=== PATIENT | male | born 1940 | race Two or more races ===

== ENCOUNTER 2019-10-28 18:06 | Emergency (ER) | payer OTHER ==
[~2019-10-28] VITALS: Ht 175.3 cm; Wt 77.1 kg
[2019-10-28] MEDS ORDERED: ZETIA10 MG (18:24)
[2019-10-28] MEDS ORDERED: VITAMIN C500 M2 (18:24)
[2019-10-28] MEDS ORDERED: CHILDREN'S ASPI81 MG (18:24)
[2019-10-28] MEDS ORDERED: GLIPIZIDE XL10 MG (18:24)
[2019-10-28] MEDS ORDERED: FORTAMET500 MG (18:25)
[2019-10-28] MEDS ORDERED: VITAMIN B-12100 MCG (18:25)
[2019-10-28] MEDS ORDERED: LIPITOR40 M1 (18:25)
[2019-10-28] MEDS ORDERED: JANUVIA100 MG (18:26)
[2019-10-28] MEDS ORDERED: ZESTRIL20 MG (18:26)
[2019-10-28] MEDS ORDERED: TOPROL XL50 M1 (18:26)
== END 2019-10-28 22:13 | disposition home or self-care (01) ==
LOC: ER 18:06
DX: R07.89 Other chest pain (principal)

== ENCOUNTER 2019-12-17 17:30 | Emergency (ER) | payer OTHER ==
[~2019-12-17] VITALS: Ht 175.3 cm; Wt 72.6 kg
[~2019-12-17 17:30] MED LIST: CHILDREN'S ASPI81 MG; FORTAMET500 MG; GLIPIZIDE XL10 MG; JANUVIA100 MG; LIPITOR40 M1; TOPROL XL50 M1; VITAMIN B-12100 MCG; VITAMIN C500 M2; ZESTRIL20 MG; ZETIA10 MG
== END 2019-12-17 19:24 | disposition home or self-care (01) ==
LOC: ER 17:30
DX: E87.5 Hyperkalemia (principal); R53.1 Weakness; F41.8 Other specified anxiety disorders; E13.9 Other specified diabetes mellitus without complications; Z79.84 Long term (current) use of oral hypoglycemic drugs

== ENCOUNTER 2023-03-18 18:10 | Emergency (ER) | payer OTHER ==
[~2023-03-18] VITALS: Ht 175.3 cm; Wt 70.8 kg
[~2023-03-18 18:10] MED LIST changes: +ACTOS15 MG PO; +TOPROL XL50 M1 PO
== END 2023-03-18 20:27 | disposition home or self-care (01) ==
LOC: ER 18:10
DX: R07.9 Chest pain, unspecified (principal); Z88.0 Allergy status to penicillin

== ENCOUNTER 2023-05-18 21:19 | Emergency (ER) | payer OTHER ==
[~2023-05-18] VITALS: Ht 175.3 cm; Wt 71.2 kg
[2023-05-18] MEDS ORDERED: CHILDREN'S ASPI81 MG PO (22:02)
[2023-05-18] MEDS ORDERED: SYNTHROID50 MCG PO (22:02)
[2023-05-18] MEDS ORDERED: EZETIMIBE10 MG PO (22:03)
== END 2023-05-19 03:34 | disposition left against medical advice (07) ==
LOC: ER 21:19
PROVIDERS: General Practice
DX: R42 Dizziness and giddiness (principal); E11.9 Type 2 diabetes mellitus without complications; Z79.4 Long term (current) use of insulin; I10 Essential (primary) hypertension; M51.36 Other intervertebral disc degeneration, lumbar region; Z88.0 Allergy status to penicillin
CPT/HCPCS: 36415; 72040; 93005; 96372; 99284; J2765

== ENCOUNTER 2024-03-30 09:48 | Emergency (ER) | payer OTHER ==
[~2024-03-30] VITALS: Ht 175.3 cm; Wt 70.3 kg
[~2024-03-30 09:48] MED LIST changes: +CHILDREN'S ASPI81 MG PO; +EZETIMIBE10 MG PO; +SYNTHROID50 MCG PO
[2024-03-30 10:52] LABS: HEMATOCRIT 41.9 % (39.0-48.0); MEAN CELL VOLUME 84.7 fL (80.0-100.00); MEAN CORPUSCULAR HEMOGLOBIN 28.2 pg (27.00-32.0); MEAN CORPUSCULAR HGB CONC 33.3 g/dl (32.0-36.0); RED BLOOD COUNT 4.95 M/uL (4.00-6.00); RED CELL DISTRIBUTION WIDTH 15.6 % (11.5-14.5)
[2024-03-30 11:25] LABS: PLATELET COUNT 129 K/uL (150-450)
== END 2024-03-30 13:22 | disposition home or self-care (01) ==
LOC: ER 09:48
PROVIDERS: Emergency Medicine
DX: J02.9 Acute pharyngitis, unspecified (principal); I10 Essential (primary) hypertension; E11.9 Type 2 diabetes mellitus without complications; Z88.0 Allergy status to penicillin; Z20.822 Contact with and (suspected) exposure to COVID-19

== ENCOUNTER 2025-01-03 20:22 | Emergency (ER) | payer OTHER ==
[~2025-01-03] VITALS: Ht 175.3 cm; Wt 68.0 kg
[2025-01-03] MEDS ORDERED: GLYXAMBI 25 MG1 EACH PO (20:41)
[2025-01-03] MEDS ORDERED: 0.9 % SODIUM CHLORIDE 1,000 ML IV SCH (21:45)
[2025-01-03] MEDS ORDERED: ACETAMINOPHEN 500 MG GEL..CAP PO ONE ×2 (21:45→22:18)
[2025-01-03] MEDS ORDERED: FAMOTIDINE/PF 20 MG in 0.9 % SODIUM CHLORIDE 8 ML IV PUSH ONE (21:45)
[2025-01-03] MEDS ORDERED: FAMOTIDINE/PF 20 MG/2 ML VIAL ONE (22:19)
[2025-01-03 23:24] LABS: HEMATOCRIT 43.9 % (39.0-48.0); HEMOGLOBIN 14.6 g/dL (13-16.00); MEAN CELL VOLUME 84.3 fL (80.0-100.00); MEAN CORPUSCULAR HGB CONC 33.2 g/dl (32.0-36.0); PLATELET COUNT 161 K/uL (150-450); RED BLOOD COUNT 5.21 M/uL (4.00-6.00)
[2025-01-03 23:51] LABS: ALBUMIN 3.7 gm/dL (3.4-5.0); BILIRUBIN TOTAL 0.5 mg/dL (0.3-1.2); CALCIUM 9.1 mg/dL (8.5-10.1); CREATININE SERUM 1.01 mg/dL (0.70-1.30); GFR 70.04; GLOBULINA 3.2 G/DL (2.4-3.5); POTASSIUM 4.39 mEq/L (3.5-5.1); TOTAL PROTEIN 6.9 gm/dL (6.4-8.2)
[2025-01-04 00:19] LABS: URINE BILIRRUBIN Negative (NEGATIVE); URINE BLOOD Trace; URINE COLOR Yellow; URINE KETONE Trace (NEGATIVE); URINE LEUKOCYTE Small; URINE NITRATE Negative; URINE PROTEIN Negative (NEGATIVE); URINE UROBILINOGEN 0.2 E.U./dl
[2025-01-04 00:22] LABS: URINE RBC 4.1 uL (0.0-20.8); URINE WBC 476.2 uL (0.0-23.2)
[2025-01-04 00:27] LABS: URINE GLUCOSE >=1000 MG/DL (NEGATIVE)
[2025-01-04 00:28] LABS: URINE APPEARANCE SL CLOUDY; URINE BACTERIA > 9821.5 uL (0.0-1933); URINE CAST 0.88 uL (0.0-1.40)
[2025-01-04 01:01] LABS: INR 0.99; PARTIAL THROMBOPLASTIN TIME 29.8 SECONDS (22.0-34.0); PROTHROMBIN TIME 10.8 SECONDS (9.0-11.5)
[2025-01-04] MEDS ORDERED: CIPRO500 MG PO (03:14)
== END 2025-01-04 03:24 ==
LOC: ER 20:23
PROVIDERS: General Practice
DX: N39.0 Urinary tract infection, site not specified (principal); K62.5 Hemorrhage of anus and rectum; I16.0 Hypertensive urgency; Z88.0 Allergy status to penicillin
CPT/HCPCS: 36415; 74177; 93005; 96365; 96366; 99284; J7030; Q9965

== ENCOUNTER → 2025-08-23 | Emergency (ER) | payer OTHER ==
[~2025-08-23] VITALS: Ht 175.3 cm; Wt 63.5 kg
[~2025-08-23] MED LIST changes: +CIPRO500 MG PO; +DEXAMETHASONE SODIUM PHOSPHATE 4 MG/ML VIAL IM STA; +GLYXAMBI 25 MG1 EACH PO; +MECLIZINE HCL 12.5 MG TABLET PO ONE
[2025-08-23 19:26] VITALS: BP 150/80; O2SAT 99
[2025-08-23 21:07] LABS: BASO % 0.6 % (0.1-1.2); EOS # 0.04 (0.04-0.54); EOS % 0.8 % (0.7-7.0); LYMPH # 0.83 (1.18-3.74); LYMPH % 16.5 % (19.3-53.1); MEAN PLATELET VOLUME 11.70 fl (9.4-12.4); MONO # 0.56 (0.24-0.82); MONO % 11.1 % (4.7-12.5); NEUT # 3.56 (1.56-6.13); NEUT % 70.8 % (34.0-71.1); RED CELL DISTRIBUTION WIDTH 16.2 % (11.6-14.4)
[2025-08-23 21:27] LABS: INR 1.0
[2025-08-23 21:28] LABS: BUN CREA RATIO 26.0 (7.0-25.0); CREATININE SERUM 1.15 mg/dL (0.70-1.30); GFR 60.15; GLUCOSE FASTING 123.0 mg/dL (65-100); OSMOLALITY SERUM 293.0 MOSM/KG (275-295)
== END | disposition home or self-care (01) ==
LOC: ER 19:11
PROVIDERS: General Practice
DX: R42 Dizziness and giddiness (principal); Z88.0 Allergy status to penicillin